=== PATIENT | female | born 1970 | race Caucasian/White ===

== ENCOUNTER 2022-12-06 11:44 | Emergency (ER) | payer OTHER ==
[2022-12-06] MEDS ORDERED: NA CHLORIDE 0.9% 1,000 ML ONE (12:18)
[2022-12-06] MEDS ORDERED: KETOROLAC 30 MG/ML INJ ONE (12:18)
[2022-12-06 12:46] LABS: Specific Gravity > 1.030 (1.005-1.030); Urine Bacteria >50 /HPF (<20); Urine Bilirubin 1+ (Negative); Urine Blood 2+ (Negative); Urine Clarity Extremely Turbid (Clear); Urine Color Yellow (Yellow); Urine Glucose NEGATIVE (Negative); Urine Mucus 1+ /HPF (None Seen); Urine Protein 1+ (Negative); Urine RBC 21-50 /HPF (None Seen); Urine Urobilinogen 2+ (Normal)
[2022-12-06 13:22] LABS: Absolute Lymphocytes (CBC) 1.5 K/uL (0.7-4.9); Hematocrit 39.6 % (36.0-45.0); Lymphocytes % 11.8 % (15.3-44.8); MCV 86.4 fL (80-100); MPV 7.9 fL (7.6-11.3); Platelets 184 thou/uL (152-406); RBC Red Blood Cell Count 4.59 M/uL (3.86-4.86)
[2022-12-06 13:42] LABS: Bilirubin Total 0.7 mg/dL (0.2-1.0); Potassium 3.8 mEq/L (3.5-5.1); Protein, Total 7.1 g/dL (6.4-8.2)
[2022-12-06] MEDS ORDERED: CEFTRIAXONE 1000 MG/VIAL ONE (14:17)
[2022-12-06 14:24] LABS: Protime INR 1.2
--- NOTE | 2022-12-06 16:14 | EDPHYS ---
Physician Documentation [facility] Name: Cecile Higgins Age: 52 yrs Sex: Female : 1970 Arrival Date: 12/06/2022 Time: 11:44 Bed 18 Private MD: ED Physician Toney Javed HPI: 12/06 12:02 This 52 yrs old Female presents to ER via Ambulatory with complaints of Pain All Over, ms3 Fever, Nausea/Vomiting. 12:02 52-year-old female with no past medical history presents for decreased p.o. intake ms3 since Monday. Patient notes she has also had headache, back pain, nausea, vomiting, diarrhea. Patient states her discomfort is 7/10 and described as "pain." Patient denies cough, dysuria, urinary frequency, chest pain, shortness of breath.. Historical: - Allergies: 11:59 Sulfa (Sulfonamide Antibiotics); cm10 - PMHx: 11:59 None; cm10 - Immunization history:: Adult Immunizations unknown. - Social history:: Smoking status: Patient denies any tobacco usage or history of. ROS: 12:02 Constitutional: Positive for body aches, chills, fever, poor PO intake. ms3 12:02 Cardiovascular: Negative for chest pain. 12:02 Respiratory: Negative for cough. 12:02 Abdomen/GI: Positive for abdominal pain, nausea, vomiting, and diarrhea. 12:02 All other systems are negative. 16:13 ENT: Negative for injury, pain, and discharge, Skin: Negative for injury, rash, and ms3 discoloration. Exam: 12:02 Constitutional: This is a well developed, well nourished patient who is awake, alert, ms3 and in no acute distress. Head/Face: Normocephalic, atraumatic. Neck: Trachea midline, no cervical lymphadenopathy. Supple, full range of motion without nuchal rigidity, or vertebral point tenderness. No Meningismus. Chest/axilla: Normal chest wall appearance and motion. Nontender with no deformity. Cardiovascular: Regular rate and rhythm with a normal S1 and S2. No gallops, murmurs, or rubs. Normal PMI, no JVD. No pulse deficits. Respiratory: Lungs have equal breath sounds bilaterally, clear to auscultation and percussion. No rales, rhonchi or wheezes noted. No increased work of breathing, no retractions or nasal flaring. Abdomen/GI: Soft, non-tender, with normal bowel sounds. No distension or tympany. No guarding or rebound. No evidence of tenderness throughout. Skin: Warm, dry with normal turgor. Normal color with no rashes, no lesions, and no evidence of cellulitis. MS/ Extremity: Pulses equal, no cyanosis. Neurovascular intact. Full, normal range of motion. 17:29 ECG was reviewed by the Attending Physician. ms3 Vital Signs: 11:58 BP 139 / 100; Pulse 92; Resp 18; Pulse Ox 98% ; Weight 81.65 kg; Height 5 ft. 9 in. ; cm10 Pain 8/10; 12:24 Temp 98.2(O); kc6 15:29 BP 112 / 67; Pulse 62; Resp 18 S; Temp 98.5(O); Pulse Ox 99% on R/A; kc6 16:06 BP 105 / 66; Pulse 62; Resp 16 S; Pulse Ox 96% on R/A; kc6 11:58 Body Mass Index 26.58 (81.65 kg, 175.26 cm) cm10 11:58 Pain Scale: Adult cm10 MDM: 12:02 Differential diagnosis: viral Infection, URI, UTI, COVID. ms3 12:14 Patient medically screened. ms3 16:13 Data reviewed: vital signs, nurses notes, and as a result, I will discharge patient. I ms3 considered the following discharge prescriptions or medication management in the emergency department Medications were administered in the Emergency Department. See MAR. Counseling: I had a detailed discussion with the patient and/or guardian regarding the historical points, exam findings, and any diagnostic results supporting the discharge/admit diagnosis, lab results, the need for outpatient follow up, to return to the emergency department if symptoms worsen or persist or if there are any questions or concerns that arise at home. Response to treatment: the patient's symptoms have markedly improved after treatment, and as a result, I will discharge patient. Special discussion: I discussed with the patient/guardian in detail that at this point there is no indication for admission to the hospital. It is understood, however, that if the symptoms persist or worsen the patient needs to return immediately for re-evaluation. ED course: Discussed labs with patient. Patient to follow-up with primary care physician in 2 to 3 days. Patient given prescription for Vantin. All questions were answered. Return precautions discussed include fevers, inability to tolerate p.o., worsening symptoms, or any other concerns. On reevaluation patient is alert and oriented x4, no apparent distress, nontoxic, ambulatory emergency room, speaking full sentences. 12/06 12:02 Order name: CBC with Diff; Complete Time: 13:46 ms3 12/06 12:02 Order name: CMP; Complete Time: 13:46 ms3 12/06 12:02 Order name: Urinalysis w/ reflexes; Complete Time: 12:48 ms3 12/06 12:02 Order name: Flu; Complete Time: 13:46 ms3 12/06 12:02 Order name: SARS-COV-2 RT PCR; Complete Time: 13:46 ms3 12/06 12:48 Order name: Urine Culture EDMS 12/06 13:46 Order name: Blood Culture Adult (2) ms3 12/06 13:46 Order name: Lactate w/ 2H reflex if indic.; Complete Time: 15:04 ms3 12/06 13:46 Order name: Protime (+inr); Complete Time: 15:04 ms3 12/06 13:46 Order name: Ptt, Activated; Complete Time: 15:04 ms3 12/06 13:46 Order name: EKG; Complete Time: 13:47 ms3 12/06 12:02 Order name: IV Saline Lock; Complete Time: 12:22 ms3 12/06 12:02 Order name: Labs collected and sent; Complete Time: 12:22 ms3 12/06 12:40 Order name: Labs - recollect needed: please recollect Lt. green and lav.; Complete bd Time: 13:12 12/06 13:46 Order name: Accucheck; Complete Time: 13:58 ms3 12/06 13:46 Order name: Cardiac monitoring; Complete Time: 14:46 ms3 12/06 13:46 Order name: EKG - Nurse/Tech; Complete Time: 14:14 ms3 12/06 13:46 Order name: IV Saline Lock - Large Bore; Complete Time: 13:59 ms3 12/06 13:46 Order name: O2 Per Protocol; Complete Time: 13:58 ms3 12/06 13:46 Order name: O2 Sat Monitoring; Complete Time: 13:58 ms3 12/06 13:46 Order name: Vital Signs; Complete Time: 13:59 ms3 EC:29 Rate is 62 beats/min. Rhythm is regular. QRS [place] is Normal. [place] interval is normal. QRS ms3 interval is normal. Clinical impression: NSR w/ Non-specific ST/T Changes. Interpreted by me. Reviewed by me. Administered Medications: 12:22 Drug: NS 0.9% IV 1000 ml Route: IV; Rate: 1 bolus; Site: right antecubital; kc6 15:12 Follow up: Response: No adverse reaction; IV Status: Completed infusion; IV Intake: kc6 1000ml 12:22 Drug: TORadol - Ketorolac IVP 15 mg Route: IVP; Site: right antecubital; kc6 13:36 Follow up: Response: No adverse reaction; Pain is decreased [facility] 14:46 Drug: Rocephin IV 1 grams Route: IV; Rate: calculated rate; Site: right antecubital; kc6 15:12 Follow up: Response: No adverse reaction; IV Status: Completed infusion; IV Intake: [id number] Disposition Summary: 12/06/22 16:13 Discharge Ordered Location: Home ms3 Condition: Stable ms3 Diagnosis - Pyelonephritis acute ms3 - Diarrhea, unspecified ms3 - Nausea with vomiting, unspecified ms3 Followup: ms3 - With: Tavo Roy MD - When: 2 - 3 days - Reason: Recheck today's complaints Discharge Instructions: - Discharge Summary Sheet ms3 - Nausea and Vomiting, Adult ms3 - Pyelonephritis, Adult ms3 Forms: - Medication Reconciliation Form ms3 - Thank You Letter ms3 - Antibiotic Education ms3 - Prescription Opioid Use ms3 - Patient Portal Instructions ms3 - Leadership Thank You Letter ms3 Prescriptions: - ondansetron 4 mg Oral Tablet,disintegrating - take 1 tablet by ORAL route every 8 hours; 15 tablet; Refills: 0, Product ms3 Selection Permitted - cefpodoxime 200 mg Oral Tablet - take 1 tablet by ORAL route every 12 hours with food; 20 tablet; Refills: 0, ms3 Product Selection Permitted Signatures: Dispatcher [employer] EDBria Pineda Marcus, DO DO ms3 Anna Marie Landis RN RN kc6 Dianna Keith, RN RN cm10
--- NOTE | 2022-12-06 16:14 | ER ---
Nurse's Notes [facility] Name: Cecile Higgins Age: 52 yrs Sex: Female : 1970 Arrival Date: 12/06/2022 Time: 11:44 Bed 18 Private MD: Diagnosis: Pyelonephritis acute;Diarrhea, unspecified;Nausea with vomiting, unspecified Presentation: 12/06 11:58 Chief complaint: Patient states: generalized body aches, vomiting and diarrhea onset cm10 Monday. Decreased appetite as well. No sick contacts. Coronavirus screen: Vaccine status: Patient reports being unvaccinated. Ebola Screen: Patient denies travel to an Ebola-affected area in the 21 days before illness onset. No symptoms or risks identified at this time. Initial Sepsis Screen: Does the patient meet any 2 criteria? No. Patient's initial sepsis screen is negative. Does the patient have a suspected source of infection? No. Patient's initial sepsis screen is negative. Risk Assessment: Do you want to hurt yourself or someone else? Patient reports no desire to harm self or others. Onset of symptoms was December 06, 2022. 11:58 Method Of Arrival: Ambulatory cm10 11:58 Acuity: NOHEMI 3 cm10 Historical: - Allergies: 11:59 Sulfa (Sulfonamide Antibiotics); cm10 - PMHx: 11:59 None; cm10 - Immunization history:: Adult Immunizations unknown. - Social history:: Smoking status: Patient denies any tobacco usage or history of. Screenin:23 [facility] ED Fall Risk Assessment (Adult) History of falling in the last 3 months, kc6 including since admission No falls in past 3 months (0 pts) Confusion or Disorientation No (0 pts) Intoxicated or Sedated No (0 pts) Impaired Gait No (0 pts) Mobility Assist Device Used No (0 pt) Altered Elimination No (0 pt) Score/Fall Risk Level 0 - 2 = Low Risk. Abuse screen: Denies threats or abuse. Denies injuries from another. Nutritional screening: No deficits noted. Tuberculosis screening: No symptoms or risk factors identified. Assessment: 12:23 General: Appears in no apparent distress. uncomfortable, ill, Behavior is calm, kc6 cooperative, appropriate for age. Neuro: Level of Consciousness is awake, alert, obeys commands, Oriented to person, place, time, situation, Appropriate for age. Cardiovascular: Capillary refill < 3 seconds. Respiratory: Airway is patent Trachea midline Respiratory effort is even, unlabored, Respiratory pattern is regular, symmetrical. GI: Abdomen is flat, non-distended, Reports anorexia, diarrhea, nausea, vomiting, Patient currently denies abdominal pain. : No signs and/or symptoms were reported regarding the genitourinary system. Urine is blood tinged. EENT: No signs and/or symptoms were reported regarding the EENT system. Derm: No signs and/or symptoms reported regarding the dermatologic system. Skin is intact, is healthy with good turgor, Skin is pink, warm \T\ dry. Musculoskeletal: No signs and/or symptoms reported regarding the musculoskeletal system. Circulation, motion, and sensation intact. Capillary refill < 3 seconds, Range of motion: intact in all extremities. 13:23 Reassessment: Patient appears in no apparent distress at this time. No changes from kc6 previously documented assessment. Patient and/or family updated on plan of care and expected duration. Pain level reassessed. Patient is alert, oriented x 3, equal unlabored respirations, skin warm/dry/pink. 14:23 Reassessment: Patient appears in no apparent distress at this time. No changes from kc6 previously documented assessment. Patient and/or family updated on plan of care and expected duration. Pain level reassessed. Patient is alert, oriented x 3, equal unlabored respirations, skin warm/dry/pink. 15:23 Reassessment: Patient appears in no apparent distress at this time. No changes from kc6 previously documented assessment. Patient and/or family updated on plan of care and expected duration. Pain level reassessed. Patient is alert, oriented x 3, equal unlabored respirations, skin warm/dry/pink. 12/07 12:35 Reassessment: Lab reports preliminary blood culture results show gram negative rods, hb Dr. Javed notifed. Vital Signs: 12/06 11:58 BP 139 / 100; Pulse 92; Resp 18; Pulse Ox 98% ; Weight 81.65 kg; Height 5 ft. 9 in. ; cm10 Pain 8/10; 12:24 Temp 98.2(O); kc6 15:29 BP 112 / 67; Pulse 62; Resp 18 S; Temp 98.5(O); Pulse Ox 99% on R/A; kc6 16:06 BP 105 / 66; Pulse 62; Resp 16 S; Pulse Ox 96% on R/A; kc6 11:58 Body Mass Index 26.58 (81.65 kg, 175.26 cm) cm10 11:58 Pain Scale: Adult cm10 ED Course: 11:49 Patient arrived in ED. mg5 11:50 Liliam Mcdaniel MD is Attending Physician. sp3 11:51 Attending Physician role handed off by Liliam Mcdaniel MD ms3 11:51 Toney Javed DO is Attending Physician. ms3 11:59 Triage completed. cm10 11:59 Arm band placed on Patient placed in an exam room, on a stretcher. cm10 12:03 Anna Marie Landis, CALVIN is Primary Nurse. kc6 12:22 Patient has correct armband on for positive identification. Bed in low position. Call kc6 light in reach. Side rails up X 1. Adult w/ patient. 12:22 SARS-COV-2 RT PCR Sent. kc6 12:22 Flu Sent. kc6 12:22 Urinalysis w/ reflexes Sent. kc6 12:22 CMP Sent. kc6 12:22 CBC with Diff Sent. kc6 12:22 Inserted saline lock: 20 gauge in right antecubital area, using aseptic technique. kc6 Blood collected. 14:05 Initial lab(s) drawn, by me, sent to lab. First set of blood cultures drawn. tm3 14:25 Second set of blood cultures drawn. tm3 16:12 Tavo Roy MD is Referral Physician. ms3 16:26 No provider procedures requiring assistance completed. IV discontinued, intact, kc6 bleeding controlled, No redness/swelling at site. Pressure dressing applied. Administered Medications: 12:22 Drug: NS 0.9% IV 1000 ml Route: IV; Rate: 1 bolus; Site: right antecubital; kc6 15:12 Follow up: Response: No adverse reaction; IV Status: Completed infusion; IV Intake: kc6 1000ml 12:22 Drug: TORadol - Ketorolac IVP 15 mg Route: IVP; Site: right antecubital; kc6 13:36 Follow up: Response: No adverse reaction; Pain is decreased kc6 14:46 Drug: Rocephin IV 1 grams Route: IV; Rate: calculated rate; Site: right antecubital; kc6 15:12 Follow up: Response: No adverse reaction; IV Status: Completed infusion; IV Intake: [id number] Medication: 16:26 VIS not applicable for this client. kc6 Intake: 15:12 IV: 10ml; Total: 10ml. kc6 15:12 IV: 1000ml; Total: 1010ml. kc6 Outcome: 16:13 Discharge ordered by . ms3 16:26 Discharged to home ambulatory, with significant other. kc6 16:26 Condition: improved 16:26 Discharge instructions given to patient, Instructed on discharge instructions, follow up and referral plans. medication usage, Demonstrated understanding of instructions, follow-up care, medications, Prescriptions given X 2. 16:26 Patient left the ED. kc6 Signatures: Maldonado Taylor tm3 Anahi Thompson, RN RN Toney Javed, DO ms3 Liliam Mcdaniel MD MD sp3 Anna Marie Landis RN RN kc6 Dianna Keith RN RN cm10 Katie Claudio [facility]
[2022-12-06 16:36] VITALS: TEMP 98.5
[2022-12-06 16:37] VITALS: BP 105/66; O2SAT 96
--- NOTE | 2022-12-07 13:05 | EKG ---
Test Date: 2022-12-06 Test Time: 14:12:16 [facility]osp[facility]: VIVIAN MEASUREMENT RESULTS: Intervals: Rate: 62 VT: 152 QRSD: 82 QT: 390 QTc: 395 [place]ado: P: 66 VT: 152 QRS: 70 T: 10 INTERPRETIVE STATEMENTS: Normal sinus rhythm Nonspecific T wave abnormality Abnormal ECG No previous ECG available for comparison Electronically Signed On 12-07-22 13:04:04 CDT by Osiel Cruz
== END 2022-12-06 16:26 | disposition home or self-care (01) ==
LOC: ER 11:44
DX: N10 Acute pyelonephritis (principal); R19.7 Diarrhea, unspecified; Z20.822 Contact with and (suspected) exposure to COVID-19; Z88.2 Allergy status to sulfonamides
CPT/HCPCS: 96365; 96361; 93005; 87040 ×2; 87088; 85025; 81001; 87086; 36415; 87205; 85610; 83605; 85730; 80053; 87635; 87804 ×2; 96375; 99284; J7030; J0696; 87077; 87186

== ENCOUNTER 2022-12-07 13:26 | Inpatient (IN) | payer OTHER ==
[2022-12-07 14:11] LABS: Absolute Lymphocytes (CBC) 1.7 K/uL (0.7-4.9); Hematocrit 41.8 % (36.0-45.0); Lymphocytes % 25.5 % (15.3-44.8); MCV 86.7 fL (80-100); MPV 7.8 fL (7.6-11.3); Platelets 211 thou/uL (152-406); RBC Red Blood Cell Count 4.81 M/uL (3.86-4.86)
[2022-12-07] MEDS ORDERED: CEFTRIAXONE 1000 MG/VIAL ONE (14:18)
[2022-12-07 14:25] LABS: Potassium 3.6 mEq/L (3.5-5.1)
--- NOTE | 2022-12-07 14:29 | EDPHYS ---
Physician Documentation [facility] Name: Cecile Higgins Age: 52 yrs Sex: Female : 1970 Arrival Date: 12/07/2022 Time: 13:26 Bed 17 Private MD: ED Physician Toney Javed HPI: 12/07 17:19 This 52 yrs old Female presents to ER via Ambulatory with complaints of Abnormal Lab ms3 Results. 17:19 52-year-old female with past medical history of kidney stone presents for fevers, ms3 chills. Patient was seen in the emergency department yesterday and diagnosed with UTI. Blood cultures revealed patient to have gram-negative rods on the preliminary report. Patient states she had 1 dose of Vantin 200 mg today. Patient states her body aches are rated a 7/10. Patient endorses dizziness, nausea, generalized weakness. Patient denies alleviating or inciting factors. Historical: - Allergies: 13:35 Sulfa (Sulfonamide Antibiotics); ap3 - PMHx: 14:12 None; ld1 - Immunization history:: Adult Immunizations up to date. - Social history:: Smoking status: Patient denies any tobacco usage or history of. Patient/guardian denies using alcohol. ROS: 17:19 Constitutional: Negative for fever, and chills. Neck: Negative for injury, pain, and ms3 swelling, Cardiovascular: Negative for chest pain, and palpitations. Respiratory: Negative for shortness of breath, cough, wheezing, and pleuritic chest pain, Abdomen/GI: Negative for abdominal pain, nausea, vomiting, diarrhea, and constipation, MS/Extremity: Negative for injury and deformity, Skin: Negative for injury, rash, and discoloration. 17:19 All other systems are negative. Exam: 17:19 Constitutional: This is a well developed, well nourished patient who is awake, alert, ms3 and in no acute distress. Head/Face: Normocephalic, atraumatic. Neck: Trachea midline, no cervical lymphadenopathy. Supple, full range of motion without nuchal rigidity, or vertebral point tenderness. No Meningismus. Chest/axilla: Normal chest wall appearance and motion. Nontender with no deformity. Cardiovascular: Regular rate and rhythm with a normal S1 and S2. No gallops, murmurs, or rubs. Normal PMI, no JVD. No pulse deficits. Respiratory: Lungs have equal breath sounds bilaterally, clear to auscultation and percussion. No rales, rhonchi or wheezes noted. No increased work of breathing, no retractions or nasal flaring. Abdomen/GI: Soft, non-tender, with normal bowel sounds. No distension or tympany. No guarding or rebound. No evidence of tenderness throughout. Skin: Warm, dry with normal turgor. Normal color with no rashes, no lesions, and no evidence of cellulitis. MS/ Extremity: Pulses equal, no cyanosis. Neurovascular intact. Full, normal range of motion. Vital Signs: 13:33 BP 128 / 69; Pulse 71; Resp 18; Pulse Ox 100% on R/A; ap3 14:11 BP 116 / 58; Pulse 71; Resp 18; Pulse Ox 99% on R/A; ld1 17:42 BP 104 / 52; Pulse 73; Resp 18; Pulse Ox 97% on R/A; ld1 MDM: 13:45 Patient medically screened. ms3 17:19 Differential Diagnosis UTI versus pyelonephritis versus bacteremia. Data reviewed: ms3 vital signs, nurses notes, lab test result(s), and as a result, I will admit patient. Consideration of Admission/Observation Patient was admitted/placed on observation. Management of patient was discussed with the following: Hospitalist: . I considered the following discharge prescriptions or medication management in the emergency department Medications were administered in the Emergency Department. See MAR. Historians other than the Patient: Spouse/Significant Other: . Counseling: I had a detailed discussion with the patient and/or guardian regarding the historical points, exam findings, and any diagnostic results supporting the discharge/admit diagnosis, lab results, the need for further work-up and treatment in the hospital. 12/07 13:38 Order name: CBC with Diff; Complete Time: 14:25 ms3 12/07 13:38 Order name: BMP; Complete Time: 14:25 ms3 12/07 16:05 Order name: Magnesium EDMS 12/07 16:05 Order name: NT PRO-BNP EDMS 12/07 16:05 Order name: Phosphorus EDMS 12/07 16:05 Order name: Urinalysis w/ reflexes EDMS 12/07 16:05 Order name: Basic Metabolic Panel EDWY 12/07 16:05 Order name: Basic Metabolic Panel EDMS 12/07 16:05 Order name: CBC with Automated Diff EDMS 12/07 16:05 Order name: CBC with Automated Diff EDMS 12/07 16:05 Order name: CONS Physician Consult EDMS 12/07 16:05 Order name: Regular EDMS Administered Medications: 14:11 Drug: Rocephin IV 1 grams Route: IV; Rate: calculated rate; Site: right antecubital; ld1 Disposition Summary: 12/07/22 14:28 Hospitalization Ordered Hospitalization Status: Inpatient Admission ms3 Provider: Tan Lomax ms3 Location: Telemetry/MedSurg (Inpatient) ms3 Condition: Stable ms3 Problem: new ms3 Symptoms: are unchanged ms3 Bed/Room Type: Standard ms3 Room Assignment: 230(12/07/22 17:17) hb Diagnosis - Bacteremia ms3 - UTI/ Urinary tract infection, site not specified ms3 - Myalgia ms3 Forms: - Medication Reconciliation Form ms3 - SBAR form ms3 - Leadership Thank You Letter ms3 Signatures: Dispatcher [employer] EDMS Anahi Thompson, RN RN hb Odilia Dorman RN RN andrew3 Toney Javed DO DO ms3 Sade Javed RN RN ld1 Corrections: (The following items were deleted from the chart) 17:17 14:28 ms3 hb
--- NOTE | 2022-12-07 14:29 | ER ---
Nurse's Notes [facility] Name: Cecile Higgins Age: 52 yrs Sex: Female : 1970 Arrival Date: 12/07/2022 Time: 13:26 Bed 17 Private MD: Diagnosis: Bacteremia;UTI/ Urinary tract infection, site not specified;Myalgia Presentation: 12/07 13:33 Chief complaint: Patient states: was called back from previous visit for positive blood ap3 cultures. patient reports body aches, nausea, and weakness. patient reports the pain to be a 7/10 on the pain scale. Coronavirus screen: At this time, the client does not indicate any symptoms associated with coronavirus-19. Ebola Screen: No symptoms or risks identified at this time. Initial Sepsis Screen: Does the patient meet any 2 criteria? No. Patient's initial sepsis screen is negative. Does the patient have a suspected source of infection? Yes: Other: positive blood cultures from previous visit. Risk Assessment: Do you want to hurt yourself or someone else? Patient reports no desire to harm self or others. Onset of symptoms is unknown. 13:33 Method Of Arrival: Ambulatory ap3 13:33 Acuity: NOHEMI 3 ap3 Triage Assessment: 13:35 General: Appears ill, Behavior is calm, cooperative, appropriate for age. General: ap3 Reports feeling ill for fatigue for. Pain: Complains of pain in generalized body aches. Neuro: Level of Consciousness is awake, alert, obeys commands, Oriented to person, place, time, situation, Appropriate for age. Neuro: Reports weakness. Cardiovascular: Patient's skin is warm and dry. Respiratory: Airway is patent Respiratory effort is even, unlabored, Respiratory pattern is regular, symmetrical. GI: Reports nausea. Historical: - Allergies: 13:35 Sulfa (Sulfonamide Antibiotics); ap3 - PMHx: 14:12 None; ld1 - Immunization history:: Adult Immunizations up to date. - Social history:: Smoking status: Patient denies any tobacco usage or history of. Patient/guardian denies using alcohol. Screenin:36 [facility] ED Fall Risk Assessment (Adult) History of falling in the last 3 months, ap3 including since admission No falls in past 3 months (0 pts). Abuse screen: Denies threats or abuse. Nutritional screening: No deficits noted. Tuberculosis screening: No symptoms or risk factors identified. Assessment: 14:11 General: Appears in no apparent distress. comfortable, Behavior is calm, cooperative, ld1 appropriate for age. Pain: Denies pain. Neuro: Level of Consciousness is awake, alert, obeys commands, Oriented to person, place, time, situation. Cardiovascular: Capillary refill < 3 seconds Patient's skin is warm and dry. Respiratory: Airway is patent Respiratory effort is even, unlabored. GI: Abdomen is round non-distended. : No signs and/or symptoms were reported regarding the genitourinary system. EENT: No signs and/or symptoms were reported regarding the EENT system. Derm: No signs and/or symptoms reported regarding the dermatologic system. Musculoskeletal: No signs and/or symptoms reported regarding the musculoskeletal system. Vital Signs: 13:33 BP 128 / 69; Pulse 71; Resp 18; Pulse Ox 100% on R/A; ap3 14:11 BP 116 / 58; Pulse 71; Resp 18; Pulse Ox 99% on R/A; ld1 17:42 BP 104 / 52; Pulse 73; Resp 18; Pulse Ox 97% on R/A; ld1 ED Course: 13:26 Patient arrived in ED. rg4 13:27 Toney Javed DO is Attending Physician. ms3 13:35 Triage completed. ap3 13:36 Arm band placed on left wrist. ap3 13:59 Sade Javed, RN is Primary Nurse. ld1 14:11 Patient has correct armband on for positive identification. Placed in gown. Bed in low ld1 position. Call light in reach. Side rails up X2. ekg monitor on. Pulse ox on. NIBP on. Door closed. Noise minimized. Warm blanket given. 14:11 BMP Sent. ld1 14:11 CBC with Diff Sent. ld1 14:11 No provider procedures requiring assistance completed. Inserted saline lock: 20 gauge ld1 in right antecubital area, using aseptic technique. Blood collected. 14:28 Tan Lomax MD is Hospitalizing Provider. ms3 17:44 Patient admitted, IV remains in place. ld1 Administered Medications: 14:11 Drug: Rocephin IV 1 grams Route: IV; Rate: calculated rate; Site: right antecubital; ld1 Medication: 17:44 VIS not applicable for this client. ld1 Outcome: 14:28 Decision to Hospitalize by Provider. ms3 17:44 Admitted to Med/surg accompanied by tech, via wheelchair, room 230, with chart, Report ld1 called to CALVIN Barry 17:44 Condition: stable 17:44 Instructed on the need for admit. 17:44 Patient left the ED. ld1 Signatures: Elsi Stubbs Amanda, RN RN ap3 Toney Javed, DO ms3 Sade Javed RN RN ld1
[2022-12-07] MEDS ORDERED: ACETAMINOPHEN 325 MG TABLET PO PRN (15:58)
[2022-12-07] MEDS ORDERED: ONDANSETRON 4 MG/2 ML VIAL IV PRN (16:03)
[2022-12-07] MEDS ORDERED: HYDRALAZINE HCL 20 MG/ML VIAL IV PRN (16:07)
--- NOTE | 2022-12-07 16:08 | P.HP ---
Certification for Inpatient Patient admitted to: Inpatient With expected LOS: >2 Midnights Patient will require the following post-hospital care: None Practitioner: I am a practitioner with admitting privileges, knowledge of patient current condition, hospital course, and medical plan of care. Services: Services provided to patient in accordance with Admission requirements found in Title 42 Section 412.3 of the Code of Federal Regulations Patient History Date of Service: 12/07/22 Reason for admission: Abnomal labs History of Present Illness: Patient is a 52-year-old male with a past medical history significant for kidney stones And migraine headache who presents with complaint of abnormal labs. Patient was seen in the ER yesterday and diagnosed with a UTI. Patient was discharged home with antibiotics. Patient reported that she took her antibiotics today. Patient reported that prior to coming to the ER yesterday patient started having bilateral flank pain onset 4 days ago. Patient reported associated signs and symptoms of poor appetite, fever, chills, chest tightness, generalized body aches, diarrhea and generalized malaise. Patient denies any other signs or symptoms. Symptoms are aggravated or relieved by nothing. Patient was called back to the ER by ER doctor due to bacteremia and gram- negative la in the urine culture. Patient presented to the hospital as directed. Allergies sulfacetamide [From Sulfamide] Allergy (Verified 12/07/22 17:56) Nausea/Vomiting Home Medications: NK [No Home Meds] 12/07/22 - Past Medical/Surgical History Past Medical History: Reviewed- Non-Contributory -: Migraine Headache -: Kidney stones Past Surgical History: Reviewed- Non-Contributory - Social History Smoking Status: Never smoker Alcohol use: No CD- Drugs: No Caffeine use: Yes Place of Residence: Home Review of Systems General: Fever, Chills, Malaise, Other (Poor Appetite, generalized body aches ) Eyes: Unremarkable ENT: Unremarkable Respiratory: Unremarkable Cardiovascular: Other (Chest tightness ) Gastrointestinal: Unremarkable Genitourinary: Other (Flank pain ) Musculoskeletal: Unremarkable Integumentary: Unremarkable Neurological: Unremarkable Lymphatics: Unremarkable Physical Examination - Physical Exam General: Alert, In no apparent distress, Oriented x3, Cooperative HEENT: Atraumatic, PERRLA, Mucous membr. moist/pink, EOMI, Sclerae nonicteric Neck: Supple, 2+ carotid pulse no bruit, No LAD, Without JVD or thyroid abnormality Respiratory: Clear to auscultation bilaterally, Normal air movement Cardiovascular: No edema, Regular rate/rhythm, Normal S1 S2 Capillary refill: <2 Seconds Gastrointestinal: Normal bowel sounds, Tenderness (flank tenderness ) Musculoskeletal: No clubbing, No swelling, No tenderness Integumentary: No rashes, No significant lesion Neurological: Normal speech, Normal tone, Normal affect Lymphatics: No axilla or inguinal lymphadenopathy - Studies Laboratory Data (last 24 hrs) 12/07/22 12/07/22 14:04 14:04 WBC 6.50 Hgb 14.0 Hct 41.8 Plt Count 211 Sodium 139 Potassium 3.6 BUN 16 Creatinine 0.72 Glucose 88 Assessment and Plan - Plan --Bacteremia. ER MD confirmed with lab that blood cultures are positive for gram-negative la although report is not in the computer yet. Continue antibiotics. Infectious disease MD consulted. Will await further recommendations from infectious disease MD. --UTI POA. Urine cultures positive for gram-negative rods. Continue antibiotics. C&S pending. Further management per infectious disease MD. --Acute pain. We will manage pain with current pain medication regimen. --Nausea and vomiting. Antiemetics on board. Continue supportive care. --Diarrhea. Patient currently denies any episode of diarrhea. Continue supportive care. --History of migraine headache. Tylenol as needed. --DVT prophylaxis with Lovenox subQ. Discharge Plan: Home Plan to discharge in: 48 Hours - Advance Directives Does patient have a Living Will: No Does patient have a Durable POA for Healthcare: No - Code Status/Comfort Care Code Status Assessed: Yes Physician Review: Patient Assessed, Agree with Above Assessment and Plan Critical Care: No
[2022-12-07 16:31] LABS: Phosphorus 1.9 mg/dL (2.5-4.9)
[2022-12-07] MEDS: ENOXAPARIN 40 MG/0.4 ML SQ SCH (17:00)
[2022-12-07 19:20] LABS: Specific Gravity > 1.030 (1.005-1.030); Urine Bacteria <20 /HPF (<20); Urine Bilirubin NEGATIVE (Negative); Urine Blood 1+ (Negative); Urine Clarity Turbid (Clear); Urine Color Yellow (Yellow); Urine Glucose NEGATIVE (Negative); Urine Mucus 1+ /HPF (None Seen); Urine Protein 1+ (Negative); Urine Urobilinogen Normal (Normal)
[2022-12-07 20:05] VITALS: BMI 28.3
[2022-12-08] MEDS: CEFEPIME 2 GM in NA CHLORIDE 0.9% 100 ML IV SCH ×3 (00:49→16:51)
[2022-12-08] MEDS: TRAMADOL HCL 50 MG TAB PO PRN ×3 (00:52→16:50)
[2022-12-08 04:16] LABS: Absolute Lymphocytes (CBC) 2.2 K/uL (0.7-4.9); Hematocrit 38.6 % (36.0-45.0); Lymphocytes % 33.5 % (15.3-44.8); MPV 8.5 fL (7.6-11.3); Platelets 190 thou/uL (152-406); RBC Red Blood Cell Count 4.49 M/uL (3.86-4.86)
[2022-12-08 04:35] LABS: Potassium 3.4 mEq/L (3.5-5.1)
[2022-12-08] MEDS: ENOXAPARIN 40 MG/0.4 ML SQ SCH (08:03)
[2022-12-08] MEDS: ASPIRIN 81 MG CHEWABLE TABLET PO SCH (08:05)
--- NOTE | 2022-12-08 08:44 | P.CNS ---
Date of Consult: 12/08/22 Reason for Consult: bacteremia, uti Chief Complaint: Abnomal labs History of Present Illness: Patient is a 52-year-old female with a past medical history of migraines and kidney stones who was recently seen in the ED on 12/06 with complaints of nausea, fever, chills. She was diagnosed with pyelonephritis and sent home on PO cefpodoxime. Due to blood cultures resulting with gram-negative rods, patient was advised to return to the ED for further treatment. Allergies sulfacetamide [From Sulfamide] Allergy (Verified 12/07/22 17:56) Nausea/Vomiting Home medications list reviewed: Yes Home Medications: NK [No Home Meds] 12/07/22 - Past Medical/Surgical History -: Migraine Headache -: Kidney stones - Social History Alcohol use: No CD- Drugs: No Caffeine use: Yes Place of Residence: Home Review of Systems General: Fever, Weakness Gastrointestinal: Nausea, Vomiting Musculoskeletal: Back Pain Physical Examination Temp Pulse Resp BP Pulse Ox 97.1 F 60 18 108/57 L 98 12/08/22 04:00 12/08/22 04:00 12/08/22 08:04 12/08/22 04:00 12/08/22 04:00 General: Alert, In no apparent distress, Oriented x3 HEENT: Atraumatic, Normocephalic Neck: Supple, JVD not distended Respiratory: Clear to auscultation bilaterally, Normal air movement Cardiovascular: No edema, Normal pulses, Regular rate/rhythm Gastrointestinal: Normal bowel sounds, Soft and benign Musculoskeletal: No clubbing Integumentary: No rashes, No breakdown Neurological: Normal speech, Normal tone, Normal affect Laboratory Data - Reviewed Microbiology Data - Reviewed Imagings Data: - Reviewed Conclusions/Impression: Problem List Bacteremia secondary to Complicated Urinary Tract Infection Bilateral nonobstructing renal calculi Migraine Bacteremia secondary to Complicated Urinary Tract Infection -Urine cultures 12/06: E. coli -Blood cultures 12/06: Gram-negative rods -No leukocytosis. Afebrile. -Currently on cefepime (started 12/08) - CT abdomen pelvis 12/08: " Bilateral nonobstructing renal calculi, largest on the left measuring 6 millimeter. No hydroureteronephrosis. " Recommendations - Continue cefepime for now - Awaiting final blood culture reports. will adjust antibiotics as appropriate - IV hydration and supplemental nutrition as tolerated. Case discussed with Marleni Smith
[2022-12-08] MEDS ORDERED: POTASSIUM CL SA 10 MEQ TAB PO ONE (09:00)
[2022-12-08] MEDS: Ringers Lactate 1,000 ML IV SCH ×2 (09:42→17:34)
[2022-12-08 12:33] LABS: Specific Gravity > 1.030 (1.005-1.030)
--- NOTE | 2022-12-08 12:58 | RAD REPORT ---
EXAM DESCRIPTION: CT - Abdomen Pelvis Wo Contrast - 12/08/2022 12:25 pm CLINICAL HISTORY: eval for pyelonephritis COMPARISON: No comparisons TECHNIQUE: Thin cut axial CT imaging of the abdomen and pelvis was performed without IV contrast. Mu ltiplanar reformats were generated and reviewed. All CT scans are performed using dose optimization technique as appropriate and may include automated exposure control or mA/KV adjustment according to patient size. FINDINGS: No suspicious findings in the lung bases. The liver, spleen, and pancreas show no suspicious findings. Gallbladder and biliary tree are also wi thout suspicious finding. Symmetric renal contour, without suspicious parenchymal findings within limits of noncontrast techniq ue. Bilateral small nonobstructing renal calculi, largest on the left at the midpole measuring 6 mill imeter. No hydroureteronephrosis. No dilated bowel loops or bowel wall thickening. Small diverticulum arising from the fundus of the st omach. No free air, free fluid or inflammatory stranding. No hernia, mass or bulky lymphadenopathy. M etallic stable effusion devices present. The urinary bladder is without significant finding. No suspicious bony findings. IMPRESSION: Bilateral nonobstructing renal calculi, largest on the left measuring 6 millimeter. No h ydroureteronephrosis. No other acute intra-abdominal process.
--- NOTE | 2022-12-08 15:05 | RAD REPORT ---
EXAM DESCRIPTION: RAD - Abdomen 1 View (KUB) - 12/08/2022 2:47 pm CLINICAL HISTORY: Epigastric discomfort COMPARISON: Abdomen Pelvis Wo Contrast dated 12/08/2022 TECHNIQUE: Single AP view of the abdomen. FINDINGS: Nonobstructive bowel gas pattern. No air-fluid levels, free air, or pneumatosis. No suspic ious calcifications. Radiodensities in the left flank, some probably correspond to the renal calculi visualized on CT abdo men of the same date, largest measure 6 millimeter. Bilateral tubal occlusion devices. No significant bony abnormality. IMPRESSION: Left flank radiodensities suggestive of renal calculi. Nonobstructive bowel gas pattern.
--- NOTE | 2022-12-08 20:20 | P.PN ---
Subjective Date of Service: 12/08/22 Chief Complaint: Abnomal labs No acute events overnight. She appears well this morning. Her urine culture has returned positive for Escherichia Coli. 1/4 blood cultures returned positive for gram-negative rods. Awaiting speciation + sensitivities. She reports mild malaise. Review of Systems 10-point ROS is otherwise unremarkable General: Malaise Physical Examination - Vital Signs Temperature: 97.1 F Blood Pressure: 98/54 Pulse: 65 Respirations: 16 Pulse Ox (%): 98 - Physical Exam General: Alert, In no apparent distress, Oriented x3 HEENT: Atraumatic, Mucous membr. moist/pink, Sclerae nonicteric Neck: JVD not distended Respiratory: Clear to auscultation bilaterally, Normal air movement Cardiovascular: No edema, Regular rate/rhythm, Normal S1 S2, No gallops, No rubs, No murmurs Gastrointestinal: Normal bowel sounds, Soft and benign, Non-distended, No tenderness, No rebound, No guarding Musculoskeletal: No clubbing Integumentary: No rashes Neurological: Normal speech, Normal affect Assessment And Plan - Plan # Escherichia Coli Urinary Tract Infection with Gram-Negative Bacteremia # History of Nephrolithiasis - Does not meet sepsis criteria - Consulted Infectious Diseases and spoke with ANTHROPOLOGIST PHYSICAL Sgarbi - recommendations appreciated - CT abdomen/pelvis order to evaluate for pyelonephritis - Continue cefepime while waiting for blood culture speciation and sensitivities - Narrow antibiotics when able Tan Lomax M.D.
[2022-12-09] MEDS ORDERED: NA CHLORIDE 0.9% 100 ML ONE (00:18)
[2022-12-09] MEDS ORDERED: CEFEPIME 2 GM VIAL ONE (00:23)
[2022-12-09] MEDS: CEFEPIME 2 GM in NA CHLORIDE 0.9% 100 ML IV SCH ×2 (00:40→08:36)
[2022-12-09] MEDS: Ringers Lactate 1,000 ML IV SCH ×2 (00:55→10:00)
[2022-12-09 04:00] LABS: Phosphorus 3.2 mg/dL (2.5-4.9); Potassium 4.2 mEq/L (3.5-5.1)
[2022-12-09] MEDS: TRAMADOL HCL 50 MG TAB PO PRN (08:34)
[2022-12-09] MEDS: ENOXAPARIN 40 MG/0.4 ML SQ SCH (08:35)
[2022-12-09] MEDS: ASPIRIN 81 MG CHEWABLE TABLET PO SCH (08:36)
--- NOTE | 2022-12-09 08:58 | P.DS ---
Admission Date: 12/07/22 Discharge Date: 12/09/22 Disposition: ROUTINE DISCHARGE Discharge Condition: GOOD Reason for Admission: Abnomal labs Consultations: 1. Infectious Diseases Hospital Course: DIAGNOSES: # Escherichia Coli Urinary Tract Infection with Bacteremia # History of Nephrolithiasis HOSPITAL COURSE: Ms. Cecile Higgins is a pleasant 52 year old female with a past medical history significant for nephrolithiasis who was admitted to the [facility] on 12/07/2022 for a positive blood culture. She was admitted to the Medicine service. She had presented to the Emergency Department on 12/06/2022 for generalized malaise. On 12/07/2022, she was called back to the hospital due to a positive blood culture. Her KUB revealed, "left flank radiodensities suggestive of renal calculi. Nonobstructive bowel gas pattern." Her CT abdomen/pelvis revealed, "bilateral nonobstructing renal calculi, largest on the left measuring 6 millimeter. No hydroureteronephrosis. No other acute intra-abdominal process." Infectious Diseases was consulted and she was evaluated by Dr. Saldaña. Over the course of her hospitalization, her symptoms improved significantly. Infectious Diseases has cleared her for discharge home with an additional 12 days of levofloxacin to complete a 14-day antibiotic course. On 12/09/2022, she was seen on morning rounds and deemed medically stable for discharge. She was discharged with instructions to schedule follow-up appointments with her PCP and with Urology (Dr. Lange). She was provided a prescription for levofloxacin. She was given the opportunity to ask questions and reported no further questions. Furthermore, all questions were answered to the best of my ability. A copy of this discharge summary will be sent to the above providers to facilitate continuity of care. Today, I personally spent 25 minutes on her case, of which greater than 50% of the time was spent in patient education, counseling, and coordination of care as described above. - Physical Exam General: Alert, In no apparent distress, Oriented x3 HEENT: Atraumatic, Mucous membr. moist/pink, Sclerae nonicteric Respiratory: Clear to auscultation bilaterally, Normal air movement Cardiovascular: No edema, Regular rate/rhythm, Normal S1 S2, No gallops, No rubs, No murmurs Gastrointestinal: Normal bowel sounds, Soft, Non-distended, No tenderness Musculoskeletal: No clubbing Integumentary: No rashes Neurological: Normal speech, Normal affect Vital Signs/Physical Exam: Temp Pulse Resp BP Pulse Ox 98.1 F 57 16 109/57 L 96 12/09/22 04:00 12/09/22 04:00 12/09/22 08:34 12/09/22 04:00 12/09/22 08:34 Laboratory Data at Discharge: WBC 6.40 thou/uL (4.3-10.9) 12/08/22 03:29 Hgb 13.2 g/dL (12.0-15.0) 12/08/22 03:29 Hct 38.6 % (36.0-45.0) 12/08/22 03:29 Plt Count 190 thou/uL (152-406) 12/08/22 03:29 Sodium 140 mEq/L (136-145) 12/09/22 02:21 Potassium 4.2 mEq/L (3.5-5.1) D 12/09/22 02:21 BUN 16 mg/dL (7-18) 12/09/22 02:21 Creatinine 0.71 mg/dL (0.55-1.02) 12/09/22 02:21 Glucose 98 mg/dL (74-106) 12/09/22 02:21 Phosphorus 3.2 mg/dL (2.5-4.9) 12/09/22 02:21 Magnesium 2.0 mg/dL (1.6-2.4) 12/07/22 14:04 Home Medications: levoFLOXacin [Levofloxacin] 750 mg PO DAILY 12 Days #12 tab 12/09/22 New Medications: levoFLOXacin [Levofloxacin] 750 mg PO DAILY 12 Days #12 tab Physician Discharge Instructions: 1. Please call and schedule a follow-up appointment with your PCP in 3-5 days 2. Please call and schedule a follow-up appointment with Urology (Dr. Lange) in 5-7 days - You were found to have kidney stones. Please follow-up with Dr. Lange for further evaluation. Diet: AHA Activity: Ad sara Followup: NONE,NONE [Primary Care Provider] - 2-3 Days (Call for appointment.) Kolby Lange [ACTIVE - CAN ADMIT] - 1 Week (Call for appointment.) Time spent managing pt's care (in minutes): 25
[2022-12-09 08:59] VITALS: BP 112/63; TEMP 97.9
[2022-12-09] MEDS ORDERED: levoFLOXacin 750 MG TAB PO ONE (09:09)
[2022-12-09 09:44] VITALS: O2SAT 97
--- NOTE | 2022-12-09 15:21 | EKG ---
Test Date: 2022-12-09 Test Time: 08:37:53 Flight Control Specialist: LEELEE MEASUREMENT RESULTS: Intervals: Rate: 67 MT: 146 QRSD: 86 QT: 416 QTc: 439 [place]: P: 57 MT: 146 QRS: 69 T: 30 INTERPRETIVE STATEMENTS: Normal sinus rhythm Normal ECG Compared to ECG 12/06/2022 14:12:16 T-wave abnormality no longer present Electronically Signed On 12-09-22 15:20:30 CDT by Osiel Cruz
== END 2022-12-09 16:33 | disposition home or self-care (01) | DRG 690 ==
LOC: ER 13:26 → ERHOLD 15:57 → 2ND 17:20
PROVIDERS: ADMIT Internal Medicine; ATTEND Internal Medicine
DX: N39.0 Urinary tract infection, site not specified (principal); R78.81 Bacteremia; M79.10 Myalgia, unspecified site; B96.20 Unspecified Escherichia coli [E. coli] as the cause of diseases classified elsewhere; Z88.2 Allergy status to sulfonamides
CPT/HCPCS: 36415; 74018; 74176; 80048; 81001; 81025; 83735; 83880; 84100; 85025; 93005; 96374; 99285; J0692; J0696; J1650; J7120

== ENCOUNTER → 2023-05-24 | Emergency (ER) | payer OTHER ==
[~2023-05-24] MED LIST: KETOROLAC 30 MG/ML INJ ONE; MAGNESIUM SULFATE 1 gm IVPB 1 GM/100 ML BAG IV ONE; MORPHINE 4 MG/ML SYR ONE; TAMSULOSIN 0.4 MG SR CAP ONE
--- OUTSIDE RECORDS SUMMARY | 2023-05-24 09:45 | XMS REPORT | Continuity of Care Document ---
Author Name Unknown Address [address] [place] [address] [facility] thconnect Address [address] [place] [address] Care Team Providers Care Cloth Spreader Screen Printing Name Role Phone [email or web address] Attending Clinician UnavailRosalind Barr Attending Clinician Unavaila ble Lizarraga_V Attending Clinician Unavailable [email or web address] Admitting Clinician Unavaila ble Physician, No Primary or Family Admitting Clinic elisabeth Unavailable Lizarraga_V Admitting Clinician Unavailable Payers Payer Name Policy Type Policy Number Effective Date Expirati on Date Source Encounters Start Date/Time End Date/Time Encounter Type Admission Type Attending Clinicians Care Facility Care Department Encounter ID Source 2023-02-05 00:00:00 2023-02-05 00:00:00 Outpatient [email or web address] PRIV PRIV [id number] [facility] 2022-12-22 12:42:00 2022-12-22 12:42:00 Outpatient Rosalind Aguirre [facility] [id number] [facility] 2022-12-09 00:00:00 2022-12-09 00:00:00 Outpatient Lizarraga_V [facility] [place] [id number] [facility]
[2023-05-24 10:07] LABS: Absolute Lymphocytes (CBC) 1.9 K/uL (0.7-4.9); Hematocrit 43.1 % (36.0-45.0); Lymphocytes % 24.2 % (15.3-44.8); MCV 86.8 fL (80-100); MPV 7.6 fL (7.6-11.3); Platelets 281 thou/uL (152-406); RBC Red Blood Cell Count 4.97 M/uL (3.86-4.86)
[2023-05-24 10:24] LABS: Albumin 3.7 g/dL (3.4-5.0); Bilirubin Total 0.5 mg/dL (0.2-1.0); Protein, Total 7.6 g/dL (6.4-8.2)
[2023-05-24 11:24] LABS: Specific Gravity 1.019 (1.005-1.030); Urine Bacteria <20 /HPF (<20); Urine Bilirubin NEGATIVE (Negative); Urine Blood 3+ (OVER) (Negative); Urine Clarity Extremely Turbid (Clear); Urine Color Light-Orange (Yellow); Urine Glucose NEGATIVE (Negative); Urine Mucus Slight /HPF (None Seen); Urine Protein 1+ (Negative); Urine RBC >50 /HPF (None Seen); Urine Urobilinogen Normal (Normal); Urine pH 5.5 (5.0-7.0)
--- NOTE | 2023-05-24 11:35 | RAD REPORT ---
EXAM DESCRIPTION: CT - Stone Protocol - 05/24/2023 10:05 am CLINICAL HISTORY: left flank pain COMPARISON: Abdomen Pelvis Wo Contrast dated 12/08/2022 TECHNIQUE: Thin cut axial CT imaging of the abdomen and pelvis was performed without IV contrast. Mu ltiplanar reformats were generated and reviewed. All CT scans are performed using dose optimization technique as appropriate and may include automated exposure control or mA/KV adjustment according to patient size. FINDINGS: No suspicious findings in the lung bases. The liver, spleen, adrenal glands, and pancreas show no suspicious findings. Gallbladder and biliary tree are also without suspicious finding. Symmetric renal contour, without suspicious parenchymal findings within limits of noncontrast techniq ue. Mild to moderate left hydroureteronephrosis, with a 6 mm mid to distal left ureteral calculus. Ot her nonobstructing calculi bilaterally more abundant on the left, not exceeding 4 mm. No dilated bowel loops or bowel wall thickening. No free air, free fluid or inflammatory stranding. N o hernia, mass or bulky lymphadenopathy. The urinary bladder is without significant finding. Tubal oc clusion devices in place. No suspicious bony findings. IMPRESSION: [id number] left hydroureteronephrosis. 6 mm mid to distal left ureteral calculus. Other bilateral nonobstructing calculi not exceeding 4 mm in size. The findings were communicated to Kaye Pandya on 05/24/2023 at 11:31 hours.
--- NOTE | 2023-05-24 14:09 | ER ---
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 Coronavirus screen: Client denies travel out of the [place] in the last 14 days. At this time, the client does not indicate any symptoms associated with coronavirus-19. Ebola Screen: Patient denies travel to an Ebola-affected area in the 21 days before illness onset. Initial Sepsis Screen: Does the patient meet any 2 criteria? No. Patient's initial sepsis screen is negative. Does the patient have a suspected source of infection? No. Patient's initial sepsis screen is negative. Risk Assessment: Do you want to hurt yourself or someone else? Patient reports no desire to harm self or others. Onset of symptoms was May 24, 2023. 09:50 Method Of Arrival: Ambulatory ll1 09:50 Acuity: NOHEMI 3 ll1 Historical: - Allergies: 09:49 Sulfa (Sulfonamide Antibiotics); ll1 - PMHx: 09:49 Kidney stone; ll1 - PSHx: 09:49 None; ll1 - Immunization history:: Adult Immunizations up to date. - Social history:: Smoking status: Patient denies any tobacco usage or history of. - Family history:: not pertinent. - Hospitalizations: : No recent hospitalization is reported. Screenin:34 [facility] ED Fall Risk Assessment (Adult) History of falling in the last 3 months, mb9 including since admission No falls in past 3 months (0 pts) Confusion or Disorientation No (0 pts) Intoxicated or Sedated No (0 pts) Impaired Gait No (0 pts) Mobility Assist Device Used No (0 pt) Altered Elimination No (0 pt) Score/Fall Risk Level 0 - 2 = Low Risk Oriented to surroundings, Maintained a safe environment, Educated pt \T\ family on fall prevention, incl call for assistance when getting out of bed. Abuse screen: Denies threats or abuse. Nutritional screening: No deficits noted. Tuberculosis screening: No symptoms or risk factors identified. Assessment: 10:33 General: Appears uncomfortable, Behavior is cooperative. Pain: Complains of pain in mb9 abdomen Pain radiates to left mid back Pain currently is 10 out of 10 on a pain scale. Quality of pain is described as throbbing, Pain began suddenly. Neuro: Miranda Agitation-Sedation Scale (RASS): 0 - Alert and Calm Level of Consciousness is awake, alert, obeys commands, Oriented to person, place, time, situation, Appropriate for age. Cardiovascular: Patient's skin is warm and dry. Respiratory: Airway is patent Respiratory effort is even, unlabored, Respiratory pattern is regular, symmetrical. GI: Abdomen is round non-distended, Bowel sounds present X 4 quads. Abd is soft Abdomen is tender to palpation X 4 quads. Reports nausea. : Denies burning with urination, inability to void, urinary frequency. : No signs and/or symptoms were reported regarding the genitourinary system. EENT: No signs and/or symptoms were reported regarding the EENT system. Derm: Skin is pink, warm \T\ dry. 11:25 Reassessment: No changes from previously documented assessment. Patient and/or family mb9 updated on plan of care and expected duration. Pain level reassessed. Patient is alert, oriented x 3, equal unlabored respirations, skin warm/dry/pink. 12:30 Reassessment: No changes from previously documented assessment. Patient and/or family mb9 updated on plan of care and expected duration. Pain level reassessed. Patient is alert, oriented x 3, equal unlabored respirations, skin warm/dry/pink. 13:38 Reassessment: No changes from previously documented assessment. Patient and/or family mb9 updated on plan of care and expected duration. Pain level reassessed. Patient is alert, oriented x 3, equal unlabored respirations, skin warm/dry/pink. 14:16 Reassessment: No changes from previously documented assessment. Patient and/or family mb9 updated on plan of care and expected duration. Pain level reassessed. Patient is alert, oriented x 3, equal unlabored respirations, skin warm/dry/pink. Vital Signs: 09:50 BP 168 / 108; Pulse 61; Resp 20; Temp 97.1; Pulse Ox 100% on R/A; Pain 8/10; ll1 10:18 BP 135 / 79; Pulse 64; Resp 18; Pulse Ox 100% on R/A; mb9 11:25 BP 131 / 86; Pulse 60; Resp 16; Pulse Ox 99% on R/A; mb9 12:58 BP 115 / 73; Pulse 62; Resp 18; Pulse Ox 100% on R/A; mb9 14:16 BP 118 / 74; Pulse 60; Resp 18; Pulse Ox 100% on R/A; mb9 09:50 Pain Scale: Adult ll1 ED Course: 09:45 Patient arrived in ED. mr 09:45 Eugenio Pandya MD is Attending Physician. rn 09:51 Triage completed. ll1 09:51 Arm band placed on Patient placed in an exam room, on a stretcher. ll1 10:02 Inserted saline lock: 20 gauge in left antecubital area, using aseptic technique. Blood kc6 collected. 10:06 Suma Thomas, RN is Primary Nurse. mb9 10:06 CT Stone Protocol In Process Unspecified. EDMS 10:34 Placed in gown. Bed in low position. Call light in reach. Side rails up X 1. Client mb9 placed on continuous cardiac and pulse oximetry monitoring. NIBP monitoring applied. 10:34 No provider procedures requiring assistance completed. mb9 14:17 IV discontinued, intact, bleeding controlled, No redness/swelling at site. Pressure mb9 dressing applied. Administered Medications: 10:12 Drug: Ondansetron IVP 4 mg IVP once; over 2 minutes Route: IVP; Site: left antecubital; mb9 11:42 Follow up: Response: No adverse reaction mb9 10:18 Drug: morphine IVP or IV 4 mg IVP once over 4 mins Route: IVP; Infused Over: 4 mins; mb9 Site: left antecubital; 11:42 Follow up: Response: No adverse reaction mb9 11:10 Drug: Magnesium Sulfate IVPB 1 grams IVPB once over 1 hrs Route: IVPB; Infused Over: 1 rs5 hrs; Site: left antecubital; 12:11 Follow up: Response: No adverse reaction; IV Status: Completed infusion mb9 11:10 Drug: Flomax PO 0.4 mg PO once Route: PO; rs5 11:56 Follow up: Response: No adverse reaction mb9 11:56 Drug: Ketorolac IVP 15 mg IVP once Route: IVP; Site: left antecubital; mb9 11:56 Follow up: Response: No adverse reaction mb9 Medication: 10:34 VIS not applicable for this client. mb9 Outcome: 14:09 Discharge ordered by . rn 14:17 Discharged to home ambulatory, mb9 14:17 Condition: stable 14:17 Discharge instructions given to patient, Instructed on discharge instructions, follow up and referral plans. Demonstrated understanding of instructions, follow-up care, medications, Prescriptions given X 3, 14:17 Patient left the ED. mb9 Signatures: Dispatcher [employer] EDMS Suma Sifuentes, Reg Reg mr Eugenio Pandya MD MD rn Lewis, Lynsay, RN RN ll1 Anna Marie Landis RN RN kc6 Suma Thomas, RN RN mb9 Otf Lyons RN RN rs5
--- NOTE | 2023-05-24 14:09 | EDPHYS ---
Physician Documentation [facility] Name: Cecile Higgins Age: 53 yrs Sex: Female : 1970 Arrival Date: 05/24/2023 Time: 09:43 Bed 4 Private MD: ED Physician Eugenio Pandya HPI: 05/24 10:25 This 53 yrs old Female presents to ER via Ambulatory with complaints of Possible Kidney rn Stone. 10:25 The patient complains of pain in the left mid back. The pain radiates to the abdomen. rn Onset: The symptoms/episode began/occurred this morning. Modifying factors: The symptoms are alleviated by nothing. the symptoms are aggravated by nothing. Associated signs and symptoms: Pertinent positives: nausea, Pertinent negatives: dysuria, fever, hematuria. Severity of pain: At its worst the pain was moderate in the emergency department the pain is unchanged. The patient has experienced similar episodes in the past. The patient has not recently seen a physician. Patient reports left flank pain that radiates to left groin. Began this morning. Has history of kidney stones. Reports in the past told has 2 large kidney stones that likely are not going to pass. No fever. No urinary symptoms. No hematuria. No trauma. Began acutely this morning. Has not felt ill recently.. Historical: - Allergies: 09:49 Sulfa (Sulfonamide Antibiotics); ll1 - PMHx: 09:49 Kidney stone; ll1 - PSHx: 09:49 None; ll1 - Immunization history:: Adult Immunizations up to date. - Social history:: Smoking status: Patient denies any tobacco usage or history of. - Family history:: not pertinent. - Hospitalizations: : No recent hospitalization is reported. ROS: 10:25 Constitutional: Negative for fever, chills, and weight loss, Cardiovascular: Negative rn for chest pain, palpitations, and edema, Respiratory: Negative for shortness of breath, cough, wheezing, and pleuritic chest pain, Abdomen/GI: Positive for left flank pain Back: Positive for left flank pain : Negative for injury, bleeding, discharge, and swelling, MS/Extremity: Negative for injury and deformity, Skin: Negative for injury, rash, and discoloration, Neuro: Negative for headache, weakness, numbness, tingling, and seizure, Exam: 10:25 Constitutional: This is a well developed, well nourished patient who is awake, alert, rn appears in pain Cardiovascular: Regular rate and rhythm. No pulse deficits. Respiratory: No increased work of breathing, no retractions or nasal flaring. Abdomen/GI: Soft, nontender. No peritoneal signs Back: Negative for CVA tenderness Vital Signs: 09:50 BP 168 / 108; Pulse 61; Resp 20; Temp 97.1; Pulse Ox 100% on R/A; Pain 8/10; ll1 10:18 BP 135 / 79; Pulse 64; Resp 18; Pulse Ox 100% on R/A; mb9 11:25 BP 131 / 86; Pulse 60; Resp 16; Pulse Ox 99% on R/A; mb9 12:58 BP 115 / 73; Pulse 62; Resp 18; Pulse Ox 100% on R/A; mb9 14:16 BP 118 / 74; Pulse 60; Resp 18; Pulse Ox 100% on R/A; mb9 09:50 Pain Scale: Adult ll1 MDM: 09:46 Patient medically screened. rn 14:08 Differential diagnosis: nephrolithiasis, pyelonephritis, UTI. Data reviewed: vital rn signs, nurses notes, lab test result(s), radiologic studies, CT scan, and as a result, I will discharge patient. Consideration of Admission/Observation Patient was admitted/placed on observation. But patient's pain improved and feels much better, would like to go home.. Counseling: I had a detailed discussion with the patient and/or guardian regarding the historical points, exam findings, and any diagnostic results supporting the discharge/admit diagnosis, lab results, radiology results, the need for outpatient follow up, to return to the emergency department if symptoms worsen or persist or if there are any questions or concerns that arise at home. Response to treatment: the patient's symptoms have markedly improved after treatment, and as a result, I will discharge patient. Special discussion: I discussed with the patient/guardian in detail that at this point there is no indication for admission to the hospital. It is understood, however, that if the symptoms persist or worsen the patient needs to return immediately for re-evaluation. Based on the history and exam findings, there is no indication for further emergent testing or inpatient evaluation. I discussed with the patient/guardian the need to see the primary care provider for further evaluation of the symptoms. I discussed with the patient/guardian the need to see the urologist for further evaluation of the symptoms. 05/24 09:53 Order name: CBC with Diff; Complete Time: 10:59 rn 05/24 09:53 Order name: CMP; Complete Time: 10:59 rn 05/24 09:53 Order name: Lipase; Complete Time: 10:59 rn 05/24 09:53 Order name: Urinalysis w/ reflexes; Complete Time: 11:25 rn 05/24 09:53 Order name: CT Stone Protocol; Complete Time: 11:40 rn 05/24 09:53 Order name: IV Saline Lock; Complete Time: 10:02 rn 05/24 09:53 Order name: Labs collected and sent; Complete Time: 10:02 rn Administered Medications: 10:12 Drug: Ondansetron IVP 4 mg IVP once; over 2 minutes Route: IVP; Site: left antecubital; mb9 11:42 Follow up: Response: No adverse reaction mb9 10:18 Drug: morphine IVP or IV 4 mg IVP once over 4 mins Route: IVP; Infused Over: 4 mins; mb9 Site: left antecubital; 11:42 Follow up: Response: No adverse reaction mb9 11:10 Drug: Magnesium Sulfate IVPB 1 grams IVPB once over 1 hrs Route: IVPB; Infused Over: 1 rs5 hrs; Site: left antecubital; 12:11 Follow up: Response: No adverse reaction; IV Status: Completed infusion mb9 11:10 Drug: Flomax PO 0.4 mg PO once Route: PO; rs5 11:56 Follow up: Response: No adverse reaction mb9 11:56 Drug: Ketorolac IVP 15 mg IVP once Route: IVP; Site: left antecubital; mb9 11:56 Follow up: Response: No adverse reaction mb9 Disposition Summary: 05/24/23 14:09 Discharge Ordered Notes: Location: Home rn Problem: new rn Symptoms: have improved rn Condition: Stable rn Diagnosis - Calculus of ureter rn Followup: rn - With: Private Physician - When: As needed - Reason: Recheck today's complaints, Re-evaluation by your physician Discharge Instructions: - Discharge Summary Sheet rn - Kidney Stones rn - Renal Colic rn - Dietary Guidelines to Help Prevent Kidney Stones rn Forms: - Medication Reconciliation Form rn - Thank You Letter rn - Antibiotic news department intern - Prescription Opioid Use rn - Patient Portal Instructions rn - Leadership Thank You Letter rn Prescriptions: - ondansetron 4 mg Oral Tablet,disintegrating - take 1 tablet ORAL route every 8 hours As needed; 10 tablet; Refills: 0, rn Product Selection Permitted - Cipro 500 mg Oral Tablet - take 1 tablet ORAL route every 12 hours for 7 days; 14 tablet; Refills: 0, rn Product Selection Permitted - Tramadol 50 mg Oral Tablet - take 1 tablet ORAL route every 8 hours as needed; 12 tablet; Refills: 0, rn Product Selection Permitted Signatures: Dispatcher [employer] EDRI Eugenio Pandya MD MD rn Lewis, Lynsay, RN RN ll1 Suma Thomas RN RN mb9 Otf Lyons RN RN rs5
[2023-05-24 15:21] VITALS: BP 118/74; TEMP 97.1; O2SAT 100
== END ==
LOC: ER 09:43
DX: N20.1 Calculus of ureter (principal); Z87.442 Personal history of urinary calculi; Z88.2 Allergy status to sulfonamides
CPT/HCPCS: 36415; 74176; 76377; 80053; 81001; 83690; 85025; J3475

== ENCOUNTER 2024-04-06 09:20 | Emergency (ER) | payer OTHER ==
--- OUTSIDE RECORDS SUMMARY | 2024-04-06 09:23 | XMS REPORT | Continuity of Care Document ---
Author Name Unknown Address [address] [place] [address] [facility] thconnect Address [address] [place] [address] Care Team Providers Care Caser Up Name Role Phone [email or web address] Attending Clinician UnavailRosalind [...] 2023-02-05 00:00:00 Outpatient [email or web address] PRIV PRIV [id number] [facility] 2022-12-22 12:42:00 2022-12-22 12:42:00 Outpatient Rosalind Aguirre [facility] [id number] [address] [facility] 2022-12-09 00:00:00 2022-12-09 00:00:00 Outpatient Lizarraga_V [facility] [id number] [facility]
[2024-04-06] MEDS ORDERED: ONDANSETRON 4 MG/2 ML VIAL ONE (09:46)
[2024-04-06] MEDS ORDERED: NA CHLORIDE 0.9% 1,000 ML ONE (09:46)
[2024-04-06] MEDS ORDERED: KETOROLAC 30 MG/ML INJ ONE (09:46)
[2024-04-06 10:12] LABS: Specific Gravity 1.014 (1.005-1.030); Urine Bilirubin NEGATIVE (Negative); Urine Blood Negative (Negative); Urine Clarity Clear (Clear); Urine Color Light-Yellow (Yellow); Urine Glucose NEGATIVE (Negative); Urine Ketones NEGATIVE (Negative); Urine Microscopic Reflex YN NO UMIC; Urine Nitrite NEGATIVE (Negative); Urine Protein NEGATIVE (Negative); Urine Urobilinogen Normal (Normal); Urine pH 7.5 (5.0-7.0)
[2024-04-06 10:17] LABS: Absolute Eosinophils 0.1 K/uL (0-0.5); Absolute Lymphocytes (CBC) 1.9 K/uL (0.7-4.9); Absolute Monocytes 0.4 K/uL (0.1-1.3); Absolute Neutrophil 4.3 K/uL (1.8-8.0); Basophils % 0.5 % (0-1.3); Eosinophils % 1.1 % (0-4.4); Hematocrit 42.6 % (36.0-45.0); Hemoglobin 14.3 g/dL (12.0-15.0); Lymphocytes % 28.6 % (15.3-44.8); MCH 29.6 pg (27.0-35.0); MCHC 33.6 g/dL (32.0-36.0); MCV 88.2 fL (80-100); Monocytes % 5.7 % (3.3-12.3); Neutrophils % 64.1 % (41.7-73.7); Platelets 237 thou/uL (152-406); RBC Red Blood Cell Count 4.83 M/uL (3.86-4.86); Red Cell Distribution Width 13.7 % (12.1-15.2)
[2024-04-06 10:29] LABS: Albumin 3.6 g/dL (3.4-5.0); Bilirubin Total 0.5 mg/dL (0.2-1.0); Globulin 3.5 g/dL (2.3-3.5); Protein, Total 7.1 g/dL (6.4-8.2)
[2024-04-06] MEDS ORDERED: MORPHINE 4 MG/ML SYR ONE (10:43)
--- NOTE | 2024-04-06 11:45 | RAD REPORT ---
EXAMINATION: CT Abdomen Pelvis W Contrast CLINICAL INDICATION: Female, 54 years old. FLANK PAIN TECHNIQUE: CT abdomen and pelvis was performed, after the administration of IV contrast, [facility]. Axial, sagittal and coronal reconstructions were obtained. One or more of the following dose reduction techniques were used: Automated exposure control, adjustment of the mA and k V according to patient size, and iterative reconstruction. Unless otherwise specified, incidental findings do not require dedicated imaging follow-up. COMPARISON: 05/24/2023 FINDINGS: LOWER CHEST: The visualized lung bases are clear. LIVER: Normal in size and contour. No focal lesion. BILIARY SYSTEM: No suspicious abnormalities. SPLEEN: Normal size. No focal lesion. PANCREAS: No mass, ductal dilation, or kaitlynn-pancreatic fluid. ADRENALS: Normal; no mass. KIDNEYS: Normal size and contour. No hydronephrosis. Bilateral nonobstructing renal calculi more abun dant on the left, largest measures 4 mm the left interpolar region. URINARY BLADDER: Suboptimally distended which limits evaluation. GASTROINTESTINAL TRACT: Small diverticulum arising from the gastric fundus, stable. No evidence of fr ee air, significant intra-abdominal free fluid, bowel obstruction or abscess. Moderate stool burden in the distal sigmoid colon and rectum. APPENDIX: Normal appendix. LYMPH NODES: No lymphadenopathy. MUSCULOSKELETAL: No acute or suspicious osseous abnormality. ADDITIONAL FINDINGS: Bilateral tubal occlusion devices present.. IMPRESSION: Few nonobstructing bilateral renal calculi largest measures 4 mm. No evidence of obstruction. No other acute or concerning abnormalities seen in the abdomen or pelvis. Incidental findings as abov e.
--- NOTE | 2024-04-06 12:05 | ER ---
Nurse's Notes [facility] Name: Cecile Higgins Age: 54 yrs Sex: Female : 1970 Arrival Date: 04/06/2024 Time: 09:20 Bed 20 Private MD: Diagnosis: Calculus of kidney Presentation: 04/06 09:26 Chief complaint: Patient states: "I think I have another kidney stone." pt c/o R flank ss pain that radiates down R leg x 1 week. Coronavirus screen: Client denies travel out of the [place] in the last 14 days. Ebola Screen: Patient denies exposure to infectious person. Patient denies travel to an Ebola-affected area in the 21 days before illness onset. Initial Sepsis Screen: Does the patient meet any 2 criteria? No. Patient's initial sepsis screen is negative. Does the patient have a suspected source of infection? No. Patient's initial sepsis screen is negative. Risk Assessment: Do you want to hurt yourself or someone else? Patient reports no desire to harm self or others. Onset of symptoms was March 30, 2024. 09:26 Method Of Arrival: Ambulatory ss 09:26 Acuity: NOHEMI 3 ss Historical: - Allergies: : Sulfa (Sulfonamide Antibiotics); ss - PMHx: : Kidney stone; ss - Immunization history:: Adult Immunizations up to date. - Infectious Disease History:: Denies. - Social history:: Smoking status: Patient denies any tobacco usage or history of. Screenin:05 [facility] ED Fall Risk Assessment (Adult) History of falling in the last 3 months, ld1 including since admission No falls in past 3 months (0 pts) Confusion or Disorientation No (0 pts) Intoxicated or Sedated No (0 pts) Impaired Gait No (0 pts) Mobility Assist Device Used No (0 pt) Altered Elimination No (0 pt) Score/Fall Risk Level 0 - 2 = Low Risk Oriented to surroundings, Maintained a safe environment, Educated pt \\T\\ family on fall prevention, incl call for assistance when getting out of bed, Assessed \\T\\ reinforced patient's understanding of fall precautions, Provided non-skid footwear, Hourly rounding (assess needs \\T\\ fall precautionary measures) done, Used ambulatory aids as needed (educated on \\T\\ assisted with), Used gait belt as appropriate. Abuse screen: Denies threats or abuse. Denies injuries from another. Nutritional screening: No deficits noted. Tuberculosis screening: No symptoms or risk factors identified. Assessment: 10:05 General: Appears in no apparent distress. comfortable, Behavior is calm, cooperative, ld1 appropriate for age. Pain: Complains of pain in low back area Pain does not radiate. Pain currently is 8 out of 10 on a pain scale. Quality of pain is described as throbbing, Pain began suddenly, Is continuous. Neuro: Level of Consciousness is awake, alert, obeys commands, Oriented to person, place, time, situation. Cardiovascular: Capillary refill < 3 seconds Patient's skin is warm and dry. Respiratory: Airway is patent Respiratory effort is even, unlabored. GI: Abdomen is flat, non-distended. : No signs and/or symptoms were reported regarding the genitourinary system. EENT: No signs and/or symptoms were reported regarding the EENT system. Derm: No signs and/or symptoms reported regarding the dermatologic system. Musculoskeletal: No signs and/or symptoms reported regarding the musculoskeletal system. 12:05 Reassessment: Patient appears in no apparent distress at this time. No changes from ld1 previously documented assessment. Patient and/or family updated on plan of care and expected duration. Pain level reassessed. Patient states symptoms have improved. Vital Signs: 09:26 Weight 81.65 kg; Height 5 ft. 9 in. ; Pain 8/10; ss 09:49 BP 126 / 80; Pulse 58; Resp 16; Temp 97.6(O); Pulse Ox 99% ; ss 10:05 BP 115 / 90; Pulse 64; Resp 18; Pulse Ox 100% on R/A; Pain 8/10; ld1 12:05 BP 127 / 81; Pulse 60; Resp 18; Pulse Ox 99% on R/A; Pain 5/10; ld1 09:26 Body Mass Index 26.58 (81.65 kg, 175.26 cm) ss 09:26 Pain Scale: Adult ss 10:05 Pain Scale: Adult ld1 12:05 Pain Scale: Adult ld1 ED Course: 09:22 Patient arrived in ED. mr 09:26 [facility]arrete [facility]C [facility]. sb4 09:26 Tony Dumont MD is Attending Physician. sb4 09:28 Triage completed. ss 09:28 Arm band placed on right wrist. ss 10:05 Patient has correct armband on for positive identification. Placed in gown. Bed in low ld1 position. Call light in reach. Side rails up X2. vehicle monitor technician on. Pulse ox on. NIBP on. Door closed. Noise minimized. Warm blanket given. 10:05 Urinalysis w/ reflexes Sent. ld1 10:05 No provider procedures requiring assistance completed. Inserted saline lock: 22 gauge ld1 in right antecubital area, using aseptic technique. Blood collected. Flushed with 10 mL NS. 10:[address] via wheelchair. hb 11:00 CT Abd/Pelvis - IV Contrast Only In Process Unspecified. EDIL 12:04 Kolby Lange MD is Referral Physician. sb4 12:05 Sade Javed, CALVIN is Primary Nurse. ld1 12:27 IV discontinued, intact, bleeding controlled, No redness/swelling at site. ld1 Administered Medications: 10:05 Drug: NS 0.9% IV 1000 ml IV at 1 bolus Per protocol; to be given as a bolus over 60 ld1 minutes Route: IV; Rate: 1 bolus; Site: right antecubital; 10:05 Drug: Ketorolac IVP 15 mg IVP once Route: IVP; Site: right antecubital; ld1 10:05 Drug: Ondansetron IVP 4 mg IVP once; over 2 minutes Route: IVP; Site: right antecubital;ld1 10:51 Drug: morphine IVP or IV 4 mg IVP once over 4 mins Route: IVP; Infused Over: 4 mins; Site: right antecubital; Medication: 10:05 VIS not applicable for this client. ld1 Outcome: 12:04 Discharge ordered by . sb4 12:27 Discharged to home ambulatory, ld1 12:27 Condition: stable 12:27 Discharge instructions given to patient, Instructed on discharge instructions, follow up and referral plans. medication usage, Demonstrated understanding of instructions, follow-up care, medications, Prescriptions given X 3, 12:27 Patient left the ED. ld1 Signatures: Dispatcher [employer] EDIL Suma Sifuentes, Reg Reg mr Libia Gutierrez RN RN Anahi Thompson RN RN Sade Javed, RN RN ld1 Pamella Navarrete, PA-C PA-C sb4
--- NOTE | 2024-04-06 12:05 | EDPHYS ---
Physician Documentation [facility] Name: Cecile Higgins Age: 54 yrs Sex: Female : 1970 Arrival Date: 04/06/2024 Time: 09:20 Bed 20 Private MD: [facility] Physician Tony Dumont HPI: 04/06 09:40 This 54 yrs old Female presents to ER via Ambulatory with complaints of Back Pain. sb4 09:41 The patient complains of pain in the right low back. sb4 09:41 The pain radiates to the right leg. Onset: The symptoms/episode began/occurred 1 sb4 week(s) ago. Modifying factors: The symptoms are alleviated by nothing. the symptoms are aggravated by nothing. Associated signs and symptoms: The patient has no apparent associated signs or symptoms. Associated signs and symptoms: Pertinent negatives: dysuria, fever, hematuria, nausea, vomiting. The patient has experienced similar episodes in the past, a few times, today's symptoms are similar, to when the patient was apparently diagnosed with kidney stone. Historical: - Allergies: 09:28 Sulfa (Sulfonamide Antibiotics); ss - PMHx: 09:28 Kidney stone; ss - Immunization history:: Adult Immunizations up to date. - Infectious Disease History:: Denies. - Social history:: Smoking status: Patient denies any tobacco usage or history of. ROS: 09:42 Constitutional: Negative for fever, chills, and weight loss, sb4 09:42 Back: Positive for flank pain, on the right, 09:42 All other systems are negative, Exam: 09:42 Head/Face: Normocephalic, atraumatic. Eyes: Extra-ocular motions intact. Periorbital sb4 areas with no swelling, redness, or edema. ENT: Mucous membranes moist. Cardiovascular: Regular rate and rhythm with a normal S1 and S2. Respiratory: No increased work of breathing, no retractions or nasal flaring. Abdomen/GI: Soft, non-tender, no distension. Skin: Warm, dry with normal turgor. Normal color with no rashes, no lesions, and no evidence of cellulitis. 09:42 Constitutional: The patient appears in no acute distress, alert, awake, 09:42 : CVA tenderness, on the right, Vital Signs: 09:26 Weight 81.65 kg; Height 5 ft. 9 in. ; Pain 8/10; ss 09:49 BP 126 / 80; Pulse 58; Resp 16; Temp 97.6(O); Pulse Ox 99% ; ss 10:05 BP 115 / 90; Pulse 64; Resp 18; Pulse Ox 100% on R/A; Pain 8/10; ld1 12:05 BP 127 / 81; Pulse 60; Resp 18; Pulse Ox 99% on R/A; Pain 5/10; ld1 09:26 Body Mass Index 26.58 (81.65 kg, 175.26 cm) ss 09:26 Pain Scale: Adult ss 10:05 Pain Scale: Adult ld1 12:05 Pain Scale: Adult ld1 MDM: 09:26 Medical Screening Exam initiated sb4 11:49 Data reviewed: vital signs, nurses notes, lab test result(s), radiologic studies, and sb4 as a result, I will discharge patient. Counseling: I had a detailed discussion with the patient and/or guardian regarding the historical points, exam findings, and any diagnostic results supporting the discharge/admit diagnosis, lab results, radiology results, to return to the emergency department if symptoms worsen or persist or if there are any questions or concerns that arise at home. 04/06 09:37 Order name: CBC with Diff; Complete Time: 10:19 sb4 04/06 09:37 Order name: CMP; Complete Time: 10:30 sb4 04/06 09:37 Order name: Lipase; Complete Time: 10:30 sb4 04/06 09:37 Order name: Urinalysis w/ reflexes; Complete Time: 10:13 sb4 04/06 09:37 Order name: CT Abd/Pelvis - IV Contrast Only; Complete Time: 11:48 sb4 04/06 09:37 Order name: IV Saline Lock; Complete Time: 10:05 sb4 04/06 09:37 Order name: Labs collected and sent; Complete Time: 10:05 sb4 Administered Medications: 10:05 Drug: NS 0.9% IV 1000 ml IV at 1 bolus Per protocol; to be given as a bolus over 60 ld1 minutes Route: IV; Rate: 1 bolus; Site: right antecubital; 10:05 Drug: Ketorolac IVP 15 mg IVP once Route: IVP; Site: right antecubital; ld1 10:05 Drug: Ondansetron IVP 4 mg IVP once; over 2 minutes Route: IVP; Site: right antecubital;ld1 10:51 Drug: morphine IVP or IV 4 mg IVP once over 4 mins Route: IVP; Infused Over: 4 mins; hb Site: right antecubital; Disposition Summary: 04/06/24 12:04 Discharge Ordered Notes: Location: Home sb4 Problem: new sb4 Symptoms: have improved sb4 Condition: Stable sb4 Diagnosis - Calculus of kidney sb4 Followup: sb4 - With: Kolby Lange MD - When: 1 week - Reason: Recheck today's complaints, Re-evaluation by your physician Discharge Instructions: - Discharge Summary Sheet sb4 - Kidney Stones sb4 Forms: - Prescription Opioid Use sb4 - Patient Portal Instructions sb4 - Leadership Thank You Letter sb4 Prescriptions: - ondansetron HCl 4 mg Oral tablet - take 1 tablet ORAL route every 6 hours As needed; 10 tablet; Refills: 0, sb4 Product Selection Permitted - tamsulosin 0.4 mg Oral capsule - take 1 capsule ORAL route every 24 hours; 20 capsule; Refills: 0, Product sb4 Selection Permitted - Tramadol 50 mg Oral Tablet - take 1 tablet ORAL route every 8 hours as needed; 12 tablet; Refills: 0, sb4 Product Selection Permitted Addendum: 04/08/2024 15:01 Co-signature as Attending Physician, Tony Dumont MD I agree with the assessment and c ty plan of care. Signatures: Dispatcher [employer] Tony Spence MD MD cha Blanchard, Shelby, RN RN Anahi Thompson RN RN Sade Javed RN RN ld1 Pamella Navarrete PA-C PA-C sb4 Corrections: (The following items were deleted from the chart) 04/06 09:42 09:41 The patient complains of pain in the right low back, sb4 sb4
[2024-04-06 12:34] VITALS: TEMP 97.6
[2024-04-06 12:37] VITALS: BP 127/81; O2SAT 99
== END 2024-04-06 12:27 | disposition home or self-care (01) ==
LOC: ER 09:20
DX: N20.0 Calculus of kidney (principal); Z87.442 Personal history of urinary calculi
CPT/HCPCS: 85025; 36415; 81003; 83690; 80053; 74177; 96375; 96374; 99285; Q9967; J2405; J7030